=== PATIENT | male | born 1935 | race Caucasian/White ===

== ENCOUNTER 2017-04-17 14:57 | Inpatient (IN) | payer MEDICARE ==
[~2017-04-17] VITALS: Ht 180.3 cm; Wt 121.0 kg
[2017-04-17] MEDS ORDERED: SODIUM CHLORIDE 0.9% 1,000 ML IV ONE (15:00)
[2017-04-17] MEDS ORDERED: SODIUM CHLORIDE FLUSH 10ML SYR IVF ONE (15:00)
[2017-04-17] MEDS ORDERED: DILTIAZEM 5 MG/ML, 5ML ONE (15:13)
[2017-04-17] MEDS ORDERED: DIPH,PERTUSS(ACELL),TET VAC/PF 0.5 ML IM-VACC ONE ×2 (15:30→15:41)
[2017-04-17] MEDS ORDERED: DILTIAZEM 5 MG/ML, 5ML IV ONE (15:30)
[2017-04-17] MEDS ORDERED: LORazepam 2 MG/ML, 1ML IVPush ONE (15:30)
[2017-04-17 15:39] LABS: ASPARTATE AMINO TRANSFERASE 34 U/L (15-37); BLOOD UREA NITROGEN 26 mg/dL (7-18)
[2017-04-17] MEDS ORDERED: LORazepam 2 MG/ML, 1ML ONE (15:41)
[2017-04-17] MEDS ORDERED: PIPERACILLIN/TAZO/PMX 3.375GM 50 ML ONE (15:43)
[2017-04-17 15:46] LABS: DIFF TOTAL CELLS COUNTED 100 CELL DIFF
[2017-04-17 15:48] LABS: VERIFY COUNTS? YES
[2017-04-17] MEDS ORDERED: DILTIAZEM 125 MG in DEXTROSE 5% 100 ML IV SCH (15:48)
[2017-04-17 15:51] LABS: IS PT STATUS REG ER OR PRE ER? YES
[2017-04-17] MEDS ORDERED: PIPERACILLIN/TAZO/PMX 3.375GM 50 ML IVPB ONE (16:00)
[2017-04-17] MEDS ORDERED: SODIUM CHLORIDE 0.9%, 500ML IVBOLUS ONE (17:00)
[2017-04-17 17:34] LABS: PATH.CAST-FLAG NOT PRESENT; SPERM-FLAG NOT PRESENT; SRC-FLAG NOT PRESENT; XTAL-FLAG NOT PRESENT; YLC-FLAG NOT PRESENT
[2017-04-17] MEDS ORDERED: ACETAMINOPHEN 500 MG TABLET ONE ×2 (17:36→17:41)
[2017-04-17] MEDS ORDERED: BACITRACIN ZINC OINT 500U/GM, 0.9 GM ONE (17:54)
[2017-04-17] MEDS ORDERED: ACETAMINOPHEN 500 MG TABLET PO ONE (18:00)
[2017-04-17 18:56] VITALS: BP 117/67
[2017-04-17] MEDS ORDERED: ENALAPRILAT 1.25 MG/ML, 2ML IVPush PRN (19:30)
[2017-04-17] MEDS ORDERED: morphine SULFATE 10 MG/ML, 1ML IVPush PRN (19:30)
[2017-04-17] MEDS ORDERED: ONDANSETRON 2MG/ML, 2ML IVPush PRN (19:30)
[2017-04-17] MEDS ORDERED: ACETAMINOPHEN 325 MG TABLET PO PRN (19:30)
[2017-04-17 19:45] LABS: DAU SCREEN DISCLAIMER
[2017-04-17 20:49] VITALS: BP 100/61
[2017-04-17] MEDS: SODIUM CHLORIDE 0.9% 1,000 ML IV SCH (20:51)
[2017-04-17 22:51] LABS: IS PT STATUS REG ER OR PRE ER? NO
[2017-04-17] MEDS: DILTIAZEM 125 MG in SODIUM CHLORIDE 0.9% 100 ML IV SCH (23:22)
[2017-04-17] MEDS: PROPYLTHIOURACIL 50 MG TABLET PO SCH (23:23)
[2017-04-17] MEDS: FUROSEMIDE 40 MG/4 ML IV SCH (23:23)
[2017-04-17 23:47] VITALS: BP 117/67
[2017-04-18 02:22] VITALS: BP 117/65
[2017-04-18] MEDS ORDERED: VANCOMYCIN PER PHARMACY MC PRN (03:30)
[2017-04-18] MEDS: SODIUM CHLORIDE 0.9% 1,000 ML IV SCH ×4 (03:57→20:37)
[2017-04-18] MEDS: VANCOMYCIN 2,000 MG in SODIUM CHLORIDE 0.9% 500 ML IV SCH (03:57)
[2017-04-18] MEDS ORDERED: PHARMACOKINETIC MONITORING MC PRN (04:00)
[2017-04-18] MEDS ORDERED: PHARMACOKINETIC CONSULTATION MC ONE (04:00)
[2017-04-18 05:02] LABS: ASPARTATE AMINO TRANSFERASE 30 U/L (15-37); BLOOD UREA NITROGEN 23 mg/dL (7-18)
[2017-04-18 05:07] LABS: IS PT STATUS REG ER OR PRE ER? NO
[2017-04-18] MEDS: DILTIAZEM 125 MG in SODIUM CHLORIDE 0.9% 100 ML IV SCH ×2 (08:00→20:37)
[2017-04-18 08:41] VITALS: BP 106/62
[2017-04-18] MEDS: PROPYLTHIOURACIL 50 MG TABLET PO SCH ×2 (10:20→20:37)
[2017-04-18] MEDS: FUROSEMIDE 40 MG/4 ML IV SCH (10:20)
[2017-04-18 13:04] VITALS: BP_SYST 104; BP_SYST 93; BP_DIAS 57; BP_DIAS 58
[2017-04-18 20:35] VITALS: BP 120/60
[2017-04-19] MEDS: DILTIAZEM 125 MG in SODIUM CHLORIDE 0.9% 100 ML IV SCH ×2 (02:30→14:30)
[2017-04-19 02:34] VITALS: BP 102/63
[2017-04-19] MEDS: VANCOMYCIN 2,000 MG in SODIUM CHLORIDE 0.9% 500 ML IV SCH (04:14)
[2017-04-19 06:35] VITALS: BP 109/62
[2017-04-19 08:54] LABS: ASPARTATE AMINO TRANSFERASE 28 U/L (15-37); BLOOD UREA NITROGEN 24 mg/dL (7-18)
[2017-04-19] MEDS: DILTIAZEM 60 MG TABLET PO SCH ×3 (09:41→21:54)
[2017-04-19] MEDS: FUROSEMIDE 40 MG/4 ML IV SCH (09:42)
[2017-04-19] MEDS: PROPYLTHIOURACIL 50 MG TABLET PO SCH ×2 (09:42→21:54)
[2017-04-19] MEDS: CEFTRIAXONE PMX 1GM/50ML 50 ML IV SCH (09:42)
[2017-04-19] MEDS: SODIUM CHLORIDE 0.9% 1,000 ML IV SCH ×2 (09:43→19:21)
[2017-04-19 12:59] VITALS: BP 113/74
[2017-04-19 20:20] VITALS: BP 105/68
[2017-04-20 01:55] VITALS: BP 110/64
[2017-04-20] MEDS: DILTIAZEM 60 MG TABLET PO SCH ×4 (02:35→20:51)
[2017-04-20] MEDS: DILTIAZEM 125 MG in SODIUM CHLORIDE 0.9% 100 ML IV SCH ×2 (03:00→14:10)
[2017-04-20] MEDS: SODIUM CHLORIDE 0.9% 1,000 ML IV SCH ×2 (03:06→09:32)
[2017-04-20] MEDS: VANCOMYCIN 2,000 MG in SODIUM CHLORIDE 0.9% 500 ML IV SCH (04:16)
[2017-04-20 06:37] LABS: ASPARTATE AMINO TRANSFERASE 26 U/L (15-37); BLOOD UREA NITROGEN 23 mg/dL (7-18)
[2017-04-20] MEDS: FUROSEMIDE 40 MG/4 ML IV SCH (09:28)
[2017-04-20] MEDS: CEFTRIAXONE PMX 1GM/50ML 50 ML IV SCH (09:28)
[2017-04-20] MEDS: PROPYLTHIOURACIL 50 MG TABLET PO SCH ×2 (09:28→20:51)
[2017-04-20 14:00] VITALS: BP 111/74
[2017-04-20] MEDS ORDERED: POTASSIUM CHLORIDE 20 MEQ TAB.ER.PRT PO ONE (16:00)
[2017-04-20 16:13] VITALS: BP 113/69
[2017-04-20] MEDS: WARFARIN 5 MG TABLET PO-COUM SCH (17:45)
[2017-04-20 19:02] VITALS: BP 103/59
[2017-04-21 02:14] VITALS: BP 122/73
[2017-04-21] MEDS: DILTIAZEM 60 MG TABLET PO SCH ×4 (02:16→20:11)
[2017-04-21] MEDS: DILTIAZEM 125 MG in SODIUM CHLORIDE 0.9% 100 ML IV SCH (02:17)
[2017-04-21 04:07] LABS: BLOOD UREA NITROGEN 24 mg/dL (7-18)
[2017-04-21] MEDS: VANCOMYCIN 2,000 MG in SODIUM CHLORIDE 0.9% 500 ML IV SCH (04:32)
[2017-04-21 07:43] VITALS: BP 114/65
[2017-04-21] MEDS: POTASSIUM CHLORIDE 20 MEQ TAB.ER.PRT PO SCH (07:45)
[2017-04-21] MEDS: PROPYLTHIOURACIL 50 MG TABLET PO SCH ×2 (07:45→20:10)
[2017-04-21] MEDS: CEFTRIAXONE PMX 1GM/50ML 50 ML IV SCH (07:45)
[2017-04-21] MEDS: FUROSEMIDE 40 MG/4 ML IV SCH (07:46)
[2017-04-21 13:08] VITALS: BP 123/73
[2017-04-21] MEDS: WARFARIN 5 MG TABLET PO-COUM SCH (18:56)
[2017-04-21 19:25] VITALS: BP 128/65
[2017-04-22 01:21] VITALS: BP 122/68
[2017-04-22] MEDS: DILTIAZEM 60 MG TABLET PO SCH ×4 (01:58→20:34)
[2017-04-22 08:21] VITALS: BP 116/71
[2017-04-22] MEDS: POTASSIUM CHLORIDE 20 MEQ TAB.ER.PRT PO SCH (08:40)
[2017-04-22] MEDS: PROPYLTHIOURACIL 50 MG TABLET PO SCH ×2 (08:40→20:34)
[2017-04-22] MEDS: CEFTRIAXONE PMX 1GM/50ML 50 ML IV SCH (08:40)
[2017-04-22] MEDS: FUROSEMIDE 40 MG/4 ML IV SCH (08:41)
[2017-04-22 14:30] VITALS: BP 138/83
[2017-04-22] MEDS: WARFARIN 5 MG TABLET PO-COUM SCH (17:44)
[2017-04-22] MEDS ORDERED: POTASSIUM CHLORIDE 20 MEQ TAB.ER.PRT PO ONE (18:30)
[2017-04-22 20:04] VITALS: BP 128/76
[2017-04-22] MEDS: LACTOBACILLUS CHEW TABLET PO SCH (20:34)
[2017-04-22] MEDS ORDERED: DILTIAZEM 5 MG/ML, 5ML ONE (23:45)
[2017-04-22 23:49] VITALS: BP 137/86
[2017-04-23] MEDS ORDERED: DILTIAZEM 5 MG/ML, 5ML IVPush ONE
[2017-04-23] MEDS: DILTIAZEM 125 MG in SODIUM CHLORIDE 0.9% 100 ML IV SCH ×2 (00:46→12:17)
[2017-04-23 01:52] VITALS: BP 134/84
[2017-04-23 05:41] LABS: BLOOD UREA NITROGEN 21 mg/dL (7-18)
[2017-04-23 07:56] VITALS: BP 145/71
[2017-04-23] MEDS: CEFTRIAXONE PMX 1GM/50ML 50 ML IV SCH (09:27)
[2017-04-23] MEDS: FUROSEMIDE 40 MG/4 ML IV SCH (09:28)
[2017-04-23] MEDS: PROPYLTHIOURACIL 50 MG TABLET PO SCH ×2 (09:28→21:30)
[2017-04-23] MEDS: LACTOBACILLUS CHEW TABLET PO SCH ×3 (09:28→21:30)
[2017-04-23] MEDS: POTASSIUM CHLORIDE 20 MEQ TAB.ER.PRT PO SCH (09:28)
[2017-04-23 14:00] VITALS: BP 109/65
[2017-04-23] MEDS: WARFARIN 5 MG TABLET PO-COUM SCH (17:56)
[2017-04-23 18:54] VITALS: BP 139/75
[2017-04-24 01:35] VITALS: BP 124/72
[2017-04-24] MEDS: DILTIAZEM 125 MG in SODIUM CHLORIDE 0.9% 100 ML IV SCH (01:49)
[2017-04-24 06:56] VITALS: BP 120/79
[2017-04-24] MEDS: PROPYLTHIOURACIL 50 MG TABLET PO SCH ×2 (08:28→21:27)
[2017-04-24] MEDS: LACTOBACILLUS CHEW TABLET PO SCH ×3 (08:28→21:27)
[2017-04-24] MEDS: CEFTRIAXONE PMX 1GM/50ML 50 ML IV SCH (08:28)
[2017-04-24] MEDS: POTASSIUM CHLORIDE 20 MEQ TAB.ER.PRT PO SCH (08:28)
[2017-04-24] MEDS: FUROSEMIDE 40 MG/4 ML IV SCH (08:28)
[2017-04-24] MEDS ORDERED: DILTIAZEM 60 MG TABLET PO SCH ×2 (10:00)
[2017-04-24] MEDS: DILTIAZEM 60 MG TABLET PO SCH ×3 (12:34→21:27)
[2017-04-24 14:36] VITALS: BP 119/72
[2017-04-24] MEDS: WARFARIN 5 MG TABLET PO-COUM SCH (18:27)
[2017-04-24 18:56] VITALS: BP 112/68
[2017-04-25 02:30] VITALS: BP 116/76
[2017-04-25] MEDS: DILTIAZEM 60 MG TABLET PO SCH ×4 (04:51→21:18)
[2017-04-25 05:58] LABS: ASPARTATE AMINO TRANSFERASE 43 U/L (15-37); BLOOD UREA NITROGEN 25 mg/dL (7-18)
[2017-04-25 08:12] VITALS: BP 113/71
[2017-04-25] MEDS: PROPYLTHIOURACIL 50 MG TABLET PO SCH ×2 (08:21→21:17)
[2017-04-25] MEDS: POTASSIUM CHLORIDE 20 MEQ TAB.ER.PRT PO SCH (08:22)
[2017-04-25] MEDS: LACTOBACILLUS CHEW TABLET PO SCH ×3 (08:23→21:17)
[2017-04-25] MEDS: FUROSEMIDE 40 MG/4 ML IV SCH (08:25)
[2017-04-25] MEDS: CEFTRIAXONE PMX 1GM/50ML 50 ML IV SCH (08:26)
[2017-04-25 12:42] VITALS: BP 109/65
[2017-04-25] MEDS: WARFARIN 5 MG TABLET PO-COUM SCH (18:12)
[2017-04-25 19:55] VITALS: BP 112/74
[2017-04-26 02:00] VITALS: BP 118/74
[2017-04-26 04:28] VITALS: BP 120/73
[2017-04-26] MEDS: DILTIAZEM 60 MG TABLET PO SCH ×4 (04:29→21:46)
[2017-04-26 08:38] VITALS: BP 103/75
[2017-04-26] MEDS: FUROSEMIDE 40 MG TABLET PO SCH (08:39)
[2017-04-26] MEDS: LACTOBACILLUS CHEW TABLET PO SCH ×3 (08:39→21:45)
[2017-04-26] MEDS: PROPYLTHIOURACIL 50 MG TABLET PO SCH ×2 (08:39→21:45)
[2017-04-26] MEDS: POTASSIUM CHLORIDE 20 MEQ TAB.ER.PRT PO SCH (08:39)
[2017-04-26] MEDS: CEFTRIAXONE PMX 1GM/50ML 50 ML IV SCH (08:40)
[2017-04-26 14:26] VITALS: BP 112/67
[2017-04-26] MEDS: WARFARIN 5 MG TABLET PO-COUM SCH (18:28)
[2017-04-26 21:25] VITALS: BP 120/73
[2017-04-27] VITALS (7 sets, daily range): BP systolic 109–131; BP diastolic 67–73
[2017-04-27] MEDS: DILTIAZEM 60 MG TABLET PO SCH ×3 (05:51→17:18)
[2017-04-27] MEDS: LACTOBACILLUS CHEW TABLET PO SCH ×3 (09:18→20:53)
[2017-04-27] MEDS: POTASSIUM CHLORIDE 20 MEQ TAB.ER.PRT PO SCH (09:18)
[2017-04-27] MEDS: FUROSEMIDE 40 MG TABLET PO SCH (09:19)
[2017-04-27] MEDS: PROPYLTHIOURACIL 50 MG TABLET PO SCH ×2 (09:19→20:53)
[2017-04-27] MEDS: CEFTRIAXONE PMX 1GM/50ML 50 ML IV SCH (09:19)
[2017-04-27] MEDS: WARFARIN 2 MG TABLET PO-COUM SCH (18:39)
[2017-04-27] MEDS: DILTIAZEM 90 MG TABLET PO SCH (20:53)
[2017-04-28 02:57] VITALS: BP 108/68
[2017-04-28] MEDS: DILTIAZEM 90 MG TABLET PO SCH ×4 (02:58→21:04)
[2017-04-28 07:29] VITALS: BP 123/70
[2017-04-28] MEDS: PROPYLTHIOURACIL 50 MG TABLET PO SCH ×2 (09:13→20:07)
[2017-04-28] MEDS: LACTOBACILLUS CHEW TABLET PO SCH ×3 (09:13→21:04)
[2017-04-28] MEDS: CEFTRIAXONE PMX 1GM/50ML 50 ML IV SCH (09:13)
[2017-04-28] MEDS: FUROSEMIDE 40 MG TABLET PO SCH (09:13)
[2017-04-28] MEDS: POTASSIUM CHLORIDE 20 MEQ TAB.ER.PRT PO SCH (09:13)
[2017-04-28] MEDS: WARFARIN 2 MG TABLET PO-COUM SCH (10:26)
[2017-04-28] MEDS: PHYTONADIONE 10 MG/ML, 1ML SQ SCH ×2 (12:34→20:08)
[2017-04-28 13:45] VITALS: BP 111/68
[2017-04-28 16:50] VITALS: BP 112/75
[2017-04-28 20:37] VITALS: BP 106/62
[2017-04-29 03:33] VITALS: BP 106/64
[2017-04-29] MEDS: PHYTONADIONE 10 MG/ML, 1ML SQ SCH (03:36)
[2017-04-29] MEDS: DILTIAZEM 90 MG TABLET PO SCH ×4 (03:36→20:35)
[2017-04-29 06:40] VITALS: BP 128/75
[2017-04-29] MEDS: CEFTRIAXONE PMX 1GM/50ML 50 ML IV SCH (10:07)
[2017-04-29] MEDS: PROPYLTHIOURACIL 50 MG TABLET PO SCH ×2 (10:07→20:35)
[2017-04-29] MEDS: LACTOBACILLUS CHEW TABLET PO SCH ×3 (10:07→20:35)
[2017-04-29] MEDS: POTASSIUM CHLORIDE 20 MEQ TAB.ER.PRT PO SCH (10:08)
[2017-04-29] MEDS: FUROSEMIDE 40 MG TABLET PO SCH (10:08)
[2017-04-29 12:42] VITALS: BP 116/69
[2017-04-29] MEDS: WARFARIN 2 MG TABLET PO-COUM SCH (15:22)
[2017-04-29 19:23] VITALS: BP 114/70
[2017-04-29] MEDS ORDERED: LOPERAMIDE 2 MG CAPSULE PO ONE (21:30)
[2017-04-30 02:00] VITALS: BP 112/68
[2017-04-30] MEDS: DILTIAZEM 90 MG TABLET PO SCH ×4 (03:24→20:46)
[2017-04-30 04:48] LABS: BLOOD UREA NITROGEN 21 mg/dL (7-18)
[2017-04-30 04:52] LABS: ASPARTATE AMINO TRANSFERASE 32 U/L (15-37)
[2017-04-30 07:01] VITALS: BP 126/67
[2017-04-30] MEDS: FUROSEMIDE 40 MG TABLET PO SCH (08:48)
[2017-04-30] MEDS: LOPERAMIDE 2 MG CAPSULE PO PRN ×2 (08:48→20:56)
[2017-04-30] MEDS: PROPYLTHIOURACIL 50 MG TABLET PO SCH ×2 (08:48→20:46)
[2017-04-30] MEDS: POTASSIUM CHLORIDE 20 MEQ TAB.ER.PRT PO SCH (08:48)
[2017-04-30] MEDS: CEFTRIAXONE PMX 1GM/50ML 50 ML IV SCH (08:49)
[2017-04-30] MEDS: HYDROcodone/APAP 5/325 TABLET PO PRN ×3 (08:49→20:46)
[2017-04-30] MEDS: LACTOBACILLUS CHEW TABLET PO SCH ×3 (08:49→20:46)
[2017-04-30] MEDS ORDERED: LIDOCAINE 1%, 20ML ONE (10:57)
[2017-04-30 12:46] VITALS: BP 110/74
[2017-04-30] MEDS: WARFARIN 2 MG TABLET PO-COUM SCH (16:26)
[2017-04-30] MEDS ORDERED: VANCOMYCIN PER PHARMACY MC PRN (16:30)
[2017-04-30] MEDS ORDERED: PHARMACOKINETIC MONITORING MC PRN (17:00)
[2017-04-30] MEDS ORDERED: PHARMACOKINETIC CONSULTATION MC ONE (17:00)
[2017-04-30] MEDS: VANCOMYCIN 2,000 MG in SODIUM CHLORIDE 0.9% 500 ML IV SCH (17:02)
[2017-04-30 20:00] VITALS: BP 122/75
[2017-05-01 02:00] VITALS: BP 111/75
[2017-05-01 05:59] LABS: BLOOD UREA NITROGEN 22 mg/dL (7-18)
[2017-05-01 06:48] VITALS: BP 118/70
[2017-05-01] MEDS: DILTIAZEM 120 MG TABLET PO SCH ×2 (09:00→21:01)
[2017-05-01] MEDS: CEFTRIAXONE PMX 1GM/50ML 50 ML IV SCH (09:35)
[2017-05-01] MEDS: HYDROcodone/APAP 5/325 TABLET PO PRN ×3 (09:35→20:56)
[2017-05-01] MEDS: LACTOBACILLUS CHEW TABLET PO SCH ×3 (09:36→20:56)
[2017-05-01] MEDS: PROPYLTHIOURACIL 50 MG TABLET PO SCH ×2 (09:36→20:56)
[2017-05-01] MEDS: FUROSEMIDE 40 MG TABLET PO SCH (09:36)
[2017-05-01] MEDS: POTASSIUM CHLORIDE 20 MEQ TAB.ER.PRT PO SCH (09:37)
[2017-05-01 12:34] VITALS: BP 103/57
[2017-05-01] MEDS: WARFARIN 2 MG TABLET PO-COUM SCH (17:18)
[2017-05-01] MEDS: VANCOMYCIN 2,000 MG in SODIUM CHLORIDE 0.9% 500 ML IV SCH (17:18)
[2017-05-01 19:56] VITALS: BP 119/69
[2017-05-01 20:57] VITALS: BP 115/74
[2017-05-02 02:24] VITALS: BP 127/74
[2017-05-02 04:46] VITALS: BP 124/68
[2017-05-02] MEDS: DILTIAZEM 120 MG TABLET PO SCH ×2 (05:39→19:51)
[2017-05-02 06:04] LABS: BLOOD UREA NITROGEN 21 mg/dL (7-18)
[2017-05-02 06:20] VITALS: BP 104/64
[2017-05-02] MEDS: FUROSEMIDE 40 MG TABLET PO SCH (08:47)
[2017-05-02] MEDS: PROPYLTHIOURACIL 50 MG TABLET PO SCH ×2 (08:47→19:51)
[2017-05-02] MEDS: POTASSIUM CHLORIDE 20 MEQ TAB.ER.PRT PO SCH (08:47)
[2017-05-02] MEDS: CEFTRIAXONE PMX 1GM/50ML 50 ML IV SCH (08:47)
[2017-05-02] MEDS: LACTOBACILLUS CHEW TABLET PO SCH ×3 (08:47→19:51)
[2017-05-02] MEDS: HYDROcodone/APAP 5/325 TABLET PO PRN ×2 (10:02→19:51)
[2017-05-02 12:01] VITALS: BP 123/76
[2017-05-02] MEDS: VANCOMYCIN 2,000 MG in SODIUM CHLORIDE 0.9% 500 ML IV SCH (17:28)
[2017-05-02] MEDS: WARFARIN 2 MG TABLET PO-COUM SCH (17:28)
[2017-05-02 19:51] VITALS: BP 116/74
[2017-05-03 00:38] VITALS: BP 132/85
[2017-05-03] MEDS ORDERED: OMNIPAQUE 350 MG/ML, 150 ML BOTTLE ONE (01:31)
[2017-05-03] MEDS ORDERED: METOCLOPRAMIDE 5 MG/ML, 2ML IVPush PRN (02:00)
[2017-05-03 05:51] LABS: BLOOD UREA NITROGEN 18 mg/dL (7-18)
[2017-05-03 06:57] VITALS: BP 113/75
[2017-05-03] MEDS: POTASSIUM CHLORIDE 20 MEQ TAB.ER.PRT PO SCH (08:00)
[2017-05-03] MEDS ORDERED: POLYETHYLENE GLYCOL 17 GM PACKET PO SCH (09:00)
[2017-05-03] MEDS: PROPYLTHIOURACIL 50 MG TABLET PO SCH ×2 (09:00→20:47)
[2017-05-03] MEDS: FUROSEMIDE 40 MG TABLET PO SCH (09:00)
[2017-05-03] MEDS: LACTOBACILLUS CHEW TABLET PO SCH ×3 (09:00→20:47)
[2017-05-03] MEDS: DILTIAZEM 120 MG TABLET PO SCH ×2 (09:00→20:49)
[2017-05-03] MEDS: CEFTRIAXONE PMX 1GM/50ML 50 ML IV SCH (09:22)
[2017-05-03 12:33] VITALS: BP 126/84
[2017-05-03] MEDS: CEFTRIAXONE PMX 2GM/50ML 50 ML IV SCH (16:40)
[2017-05-03 20:45] VITALS: BP 116/69
[2017-05-03] MEDS: WARFARIN 2 MG TABLET PO-COUM SCH (20:48)
[2017-05-04 02:00] VITALS: BP 123/74
[2017-05-04 06:11] LABS: BLOOD UREA NITROGEN 15 mg/dL (7-18)
[2017-05-04 08:00] VITALS: BP 118/70
[2017-05-04] MEDS: DILTIAZEM 120 MG TABLET PO SCH ×3 (09:21→22:54)
[2017-05-04] MEDS: POTASSIUM CHLORIDE 20 MEQ TAB.ER.PRT PO SCH (09:22)
[2017-05-04] MEDS: LACTOBACILLUS CHEW TABLET PO SCH ×3 (09:22→22:53)
[2017-05-04] MEDS: FUROSEMIDE 40 MG TABLET PO SCH (09:22)
[2017-05-04] MEDS: PROPYLTHIOURACIL 50 MG TABLET PO SCH ×2 (09:22→22:54)
[2017-05-04] MEDS ORDERED: POTASSIUM CHLORIDE 20 MEQ TAB.ER.PRT PO ONE (10:00)
[2017-05-04] MEDS ORDERED: METOPROLOL TARTRATE 25 MG TABLET PO SCH (10:30)
[2017-05-04] MEDS: CARVEDILOL 3.125 MG TABLET PO SCH ×2 (10:50→18:22)
[2017-05-04 13:03] VITALS: BP 96/61
[2017-05-04 15:02] VITALS: BP 104/61
[2017-05-04] MEDS: CEFTRIAXONE PMX 2GM/50ML 50 ML IV SCH (16:37)
[2017-05-04] MEDS ORDERED: POLYETHYLENE GLYCOL 17 GM PACKET PO ONE (18:00)
[2017-05-04] MEDS: WARFARIN 2 MG TABLET PO-COUM SCH (18:23)
[2017-05-04 20:00] VITALS: BP 104/62
[2017-05-04 22:51] VITALS: BP 111/72
[2017-05-05 02:00] VITALS: BP 109/73
[2017-05-05] MEDS: LOPERAMIDE 2 MG CAPSULE PO PRN (02:40)
[2017-05-05 05:50] VITALS: BP 108/65
[2017-05-05 05:51] LABS: BLOOD UREA NITROGEN 14 mg/dL (7-18)
[2017-05-05] MEDS: CARVEDILOL 3.125 MG TABLET PO SCH ×2 (05:51→17:31)
[2017-05-05] MEDS ORDERED: POTASSIUM CHLORIDE 20 MEQ TAB.ER.PRT PO ONE (09:00)
[2017-05-05] MEDS: DILTIAZEM 120 MG TABLET PO SCH ×3 (09:16→22:06)
[2017-05-05] MEDS: PROPYLTHIOURACIL 50 MG TABLET PO SCH ×2 (09:16→22:06)
[2017-05-05] MEDS: FUROSEMIDE 40 MG TABLET PO SCH (09:16)
[2017-05-05] MEDS: POTASSIUM CHLORIDE 20 MEQ TAB.ER.PRT PO SCH (09:16)
[2017-05-05] MEDS: LACTOBACILLUS CHEW TABLET PO SCH ×3 (09:16→22:05)
[2017-05-05 09:30] VITALS: BP 111/65
[2017-05-05 13:41] VITALS: BP 106/65
[2017-05-05 15:16] VITALS: BP 112/72
[2017-05-05] MEDS: CEFTRIAXONE PMX 2GM/50ML 50 ML IV SCH (15:49)
[2017-05-05] MEDS: WARFARIN 2 MG TABLET PO-COUM SCH (17:31)
[2017-05-05 20:58] VITALS: BP 108/77
[2017-05-06] MEDS: LOPERAMIDE 2 MG CAPSULE PO PRN ×2 (00:05→22:01)
[2017-05-06 01:39] VITALS: BP 133/74
[2017-05-06 05:19] VITALS: BP 110/69
[2017-05-06] MEDS: CARVEDILOL 3.125 MG TABLET PO SCH ×2 (05:23→17:41)
[2017-05-06 05:52] LABS: BLOOD UREA NITROGEN 14 mg/dL (7-18)
[2017-05-06 07:22] VITALS: BP 145/84
[2017-05-06] MEDS: LACTOBACILLUS CHEW TABLET PO SCH ×3 (08:19→22:00)
[2017-05-06] MEDS: DILTIAZEM 120 MG TABLET PO SCH ×3 (08:20→22:00)
[2017-05-06] MEDS: PROPYLTHIOURACIL 50 MG TABLET PO SCH ×2 (08:20→22:01)
[2017-05-06] MEDS: FUROSEMIDE 40 MG TABLET PO SCH (08:20)
[2017-05-06] MEDS: POTASSIUM CHLORIDE 20 MEQ TAB.ER.PRT PO SCH (08:20)
[2017-05-06 13:48] VITALS: BP 122/63
[2017-05-06] MEDS: CEFTRIAXONE PMX 2GM/50ML 50 ML IV SCH (15:50)
[2017-05-06] MEDS: WARFARIN 2 MG TABLET PO-COUM SCH (17:42)
[2017-05-06 19:22] VITALS: BP 125/80
[2017-05-07 02:00] VITALS: BP 114/78
[2017-05-07 05:36] VITALS: BP 106/68
[2017-05-07] MEDS: LOPERAMIDE 2 MG CAPSULE PO PRN ×2 (05:40→22:54)
[2017-05-07] MEDS: CARVEDILOL 3.125 MG TABLET PO SCH ×2 (05:40→09:18)
[2017-05-07 06:21] LABS: BLOOD UREA NITROGEN 14 mg/dL (7-18)
[2017-05-07 07:03] VITALS: BP 115/71
[2017-05-07] MEDS: LACTOBACILLUS CHEW TABLET PO SCH ×3 (09:17→22:54)
[2017-05-07] MEDS: DILTIAZEM 120 MG TABLET PO SCH (09:17)
[2017-05-07] MEDS: PROPYLTHIOURACIL 50 MG TABLET PO SCH ×2 (09:17→22:54)
[2017-05-07] MEDS: FUROSEMIDE 40 MG TABLET PO SCH (09:17)
[2017-05-07] MEDS: POTASSIUM CHLORIDE 20 MEQ TAB.ER.PRT PO SCH (09:18)
[2017-05-07 12:18] VITALS: BP 98/60
[2017-05-07] MEDS: CEFTRIAXONE PMX 2GM/50ML 50 ML IV SCH (16:55)
[2017-05-07] MEDS: WARFARIN 2 MG TABLET PO-COUM SCH (16:56)
[2017-05-07 20:11] VITALS: BP 109/66
[2017-05-07] MEDS: DILTIAZEM CD 180 MG CAP.ER.24H PO SCH (22:54)
[2017-05-08 01:59] VITALS: BP 102/71
[2017-05-08] MEDS: LOPERAMIDE 2 MG CAPSULE PO PRN ×2 (05:46→16:49)
[2017-05-08] MEDS: CARVEDILOL 3.125 MG TABLET PO SCH ×2 (05:46→16:43)
[2017-05-08 06:26] VITALS: BP 105/65
[2017-05-08] MEDS: FUROSEMIDE 40 MG TABLET PO SCH (09:55)
[2017-05-08] MEDS: POTASSIUM CHLORIDE 20 MEQ TAB.ER.PRT PO SCH (09:55)
[2017-05-08] MEDS: LACTOBACILLUS CHEW TABLET PO SCH ×3 (09:56→20:21)
[2017-05-08] MEDS: DILTIAZEM CD 180 MG CAP.ER.24H PO SCH ×2 (09:56→20:21)
[2017-05-08] MEDS: PROPYLTHIOURACIL 50 MG TABLET PO SCH ×2 (09:56→20:21)
[2017-05-08 12:30] VITALS: BP 112/67
[2017-05-08] MEDS ORDERED: morphine SULFATE 10 MG/ML, 1ML IVPush PRN (16:00)
[2017-05-08] MEDS ORDERED: ENALAPRILAT 1.25 MG/ML, 2ML IVPush PRN (16:00)
[2017-05-08] MEDS ORDERED: METOCLOPRAMIDE 5 MG/ML, 2ML IVPush PRN (16:00)
[2017-05-08] MEDS ORDERED: ONDANSETRON 2MG/ML, 2ML IVPush PRN (16:00)
[2017-05-08] MEDS ORDERED: ACETAMINOPHEN 325 MG TABLET PO PRN (16:00)
[2017-05-08] MEDS: WARFARIN 2 MG TABLET PO-COUM SCH (16:42)
[2017-05-08] MEDS: CEFTRIAXONE PMX 2GM/50ML 50 ML IV SCH (16:42)
[2017-05-08 20:15] VITALS: BP 124/76
[2017-05-09 03:23] VITALS: BP 110/73
[2017-05-09 03:59] LABS: BLOOD UREA NITROGEN 21 mg/dL (7-18)
[2017-05-09] MEDS: CARVEDILOL 3.125 MG TABLET PO SCH (05:29)
[2017-05-09 05:30] VITALS: BP 126/72
[2017-05-09 07:26] VITALS: BP 102/69
[2017-05-09] MEDS: DILTIAZEM CD 180 MG CAP.ER.24H PO SCH (10:25)
[2017-05-09] MEDS: FUROSEMIDE 40 MG TABLET PO SCH (10:25)
[2017-05-09] MEDS: PROPYLTHIOURACIL 50 MG TABLET PO SCH (10:25)
[2017-05-09] MEDS: LACTOBACILLUS CHEW TABLET PO SCH (10:26)
[2017-05-09] MEDS: POTASSIUM CHLORIDE 20 MEQ TAB.ER.PRT PO SCH (10:28)
[2017-05-09 12:35] VITALS: BP 103/68
[2017-05-09] MEDS ORDERED: LOPE2CAP PO (13:18)
[2017-05-09] MEDS ORDERED: CEFT2FRO2 IV (13:18)
[2017-05-09] MEDS ORDERED: DILT180C53 PO (13:18)
[2017-05-09] MEDS ORDERED: PROP50TA3 PO (13:18)
[2017-05-09] MEDS ORDERED: ACET325T14 PO (13:18)
[2017-05-09] MEDS ORDERED: ACID1TAB7 PO (13:18)
[2017-05-09] MEDS ORDERED: FURO40TA6 PO (13:18)
[2017-05-09] MEDS ORDERED: POTA20TA6 PO (13:18)
[2017-05-09] MEDS ORDERED: WARF2TAB PO-COUM (13:18)
[2017-05-09] MEDS ORDERED: CARV3.1212 PO (13:18)
[2017-05-09] MEDS ORDERED: HYDR-3240 PO (13:18)
[2017-05-09] MEDS ORDERED: TRAM50TA2 PO (13:18)
[2017-05-09] MEDS ORDERED: PNEUMOCOCCAL 23 VACCINE IM-VACC ONE (16:00)
== END 2017-05-09 16:48 | DRG 871 ==
LOC: ED 18:18 → 5SO 18:39 → 4EST 04-28 18:05
PROVIDERS: ADMIT Internal Medicine; ATTEND Internal Medicine
PROC: 0T9B70Z Drainage of Bladder with Drainage Device, Via Natural or Artificial Opening (ICD-10-PCS; principal; 2017-04-17)
PROC: 0S9C3ZZ Drainage of Right Knee Joint, Percutaneous Approach (ICD-10-PCS; 2017-04-30)
PROC: 02HV33Z Insertion of Infusion Device into Superior Vena Cava, Percutaneous Approach (ICD-10-PCS; 2017-05-06)
PROC: B5181ZA Fluoroscopy of Superior Vena Cava using Low Osmolar Contrast, Guidance (ICD-10-PCS; 2017-05-06)
PROC: B548ZZA Ultrasonography of Superior Vena Cava, Guidance (ICD-10-PCS; 2017-05-06)
DX: A41.59 Other Gram-negative sepsis (principal); G93.40 Encephalopathy, unspecified; E43 Unspecified severe protein-calorie malnutrition; I50.31 Acute diastolic (congestive) heart failure; N39.0 Urinary tract infection, site not specified; D68.69 Other thrombophilia; I48.92 Unspecified atrial flutter; K56.7 Ileus, unspecified; M00.9 Pyogenic arthritis, unspecified; N10 Acute pyelonephritis; R65.20 Severe sepsis without septic shock; B95.4 Other streptococcus as the cause of diseases classified elsewhere; B96.4 Proteus (mirabilis) (morganii) as the cause of diseases classified elsewhere; D63.8 Anemia in other chronic diseases classified elsewhere; E03.9 Hypothyroidism, unspecified; E05.90 Thyrotoxicosis, unspecified without thyrotoxic crisis or storm; Z68.37 Body mass index [BMI] 37.0-37.9, adult; E66.01 Morbid (severe) obesity due to excess calories; E87.6 Hypokalemia; I25.10 Atherosclerotic heart disease of native coronary artery without angina pectoris; I34.0 Nonrheumatic mitral (valve) insufficiency; I48.91 Unspecified atrial fibrillation; I87.2 Venous insufficiency (chronic) (peripheral); I87.8 Other specified disorders of veins; K80.20 Calculus of gallbladder without cholecystitis without obstruction; N39.41 Urge incontinence; R29.6 Repeated falls; S01.01XA Laceration without foreign body of scalp, initial encounter; Z96.653 Presence of artificial knee joint, bilateral; Z79.01 Long term (current) use of anticoagulants; Z87.891 Personal history of nicotine dependence; I25.2 Old myocardial infarction
CPT/HCPCS: 20606; 36415; 36569; 51702; 70450; 71010; 74000; 74177; 76700; 76937; 76942; 77001; 80048; 80053; 80162; 80202; 80307; 81001; 82040; 82550; 82565; 82705; 83605; 83735; 83880; 84100; 84145; 84436; 84439; 84443; 84481; 84484; 84520; 85025; 85610; 85651; 85810; 86141; 87040; 87046; 87070; 87075; 87077; 87086; 87147; 87181; 87186; 87205; 87324; 87329; 87899; 89050; 89055; 89060; 90471; 90715; 93005; 93308; 93321; 93325; 93922; 96361; 96365; 96368; 96375; J0696; J1940; J2543; J3370; J3430; J3490; Q9967; C1751; J7030; J7040